=== PATIENT | female | born 1965 | race Caucasian/White ===

== ENCOUNTER 2016-11-22 02:08 | Emergency (ER) | payer BC ==
[~2016-11-22] VITALS: Ht 167.6 cm; Wt 59.0 kg
[2016-11-22] MEDS ORDERED: IBUPROFEN 600 MG TABLET PO ONE (03:15)
--- NOTE | 2016-11-22 03:20 | NUR ---
Dr Rothman offered mulitple option for pain meds. Pt only requested to take motrin for right hip pain
[2016-11-22 04:07] VITALS: BP 110/60
--- NOTE | 2016-11-22 04:07 | NUR ---
Patient discharged to home in stable conditon with taking Pt home. Written and verbal after care instructions given. Patient verbalizes understanding of instructions.
[2016-11-22] MEDS ORDERED: ACETAMINOPHEN ES 500 MG TABLET ONE (04:08)
[2016-11-22] MEDS ORDERED: ACETAMINOPHEN 325 MG TABLET PO ONE (04:30)
== END 2016-11-22 04:23 | disposition home or self-care (01) ==
LOC: ER 02:26
DX: M25.551 Pain in right hip (principal)
CPT/HCPCS: 73502; A4663